=== PATIENT | male | born 1980 | race Caucasian/White ===

== ENCOUNTER 2017-09-27 19:06 | Emergency (ER) | payer OTHER ==
[2017-09-27] MEDS: HYDROCODONE/APAP (5/325) TAB PO (19:49)
== END 2017-09-27 20:51 | disposition home or self-care (01) ==
LOC: FTE 19:06
DX: S39.92XA Unspecified injury of lower back, initial encounter (principal); X58.XXXA Exposure to other specified factors, initial encounter; Y92.89 Other specified places as the place of occurrence of the external cause
CPT/HCPCS: 72220; 99283-25